=== PATIENT | male | born 1950 | race Caucasian/White ===

== ENCOUNTER 2020-11-02 07:28 | Day surgery (SDC) | payer BC, SELFPAY ==
[~2020-11-02] VITALS: Ht 175.3 cm; Wt 67.1 kg
[2020-11-02] MEDS ORDERED: CEFAZOLIN SOD 2 GM in D5W 50 ML IV ONE (09:00)
[2020-11-02 09:35] LABS: PROTHROMBIN TIME 10.4 SECS (9.5-12.5)
[2020-11-02] MEDS ORDERED: BUPIVACAINE LIPOSOME/PF 266 MG/20 ML VIAL INFIL ONE (09:37)
[2020-11-02] MEDS ORDERED: POLYMYXIN 500,000/BACIT.10,000 UNITS in NS IRR 1 L IR ONE (09:37)
[2020-11-02] MEDS ORDERED: SEVOFLURANE 15 MIN GAS INH ONE (09:50)
[2020-11-02] MEDS ORDERED: LIDOCAINE 1% 10 MG/ML, 20 ML MDV INJ ONE (09:50)
[2020-11-02] MEDS ORDERED: BUPIVACAINE /PF 0.5% 30 ML VIAL INJ ONE (09:50)
[2020-11-02] MEDS ORDERED: ePHEDrine sulfate 50 MG/ML VIAL IVP ONE (09:50)
[2020-11-02] MEDS ORDERED: METOCLOPRAMIDE HCL 10 MG/2 ML VIAL IVP ONE (09:50)
[2020-11-02] MEDS ORDERED: ROCURONIUM BROMIDE 10 MG/ML (ZEMURON) IV ONE (09:50)
[2020-11-02] MEDS ORDERED: GLYCOPYRROLATE 0.2 MG/ML VIAL IJ ONE (09:50)
[2020-11-02] MEDS ORDERED: ONDANSETRON HCL 4 MG/2 ML VIAL IVP ONE (09:50)
[2020-11-02] MEDS ORDERED: fentaNYL CITRATE/PF 100 MCG/2 ML AMP IVP ONE (09:50)
[2020-11-02] MEDS ORDERED: ETOMIDATE 20 MG/ 10 ML VIAL (AMIDATE) IVP ONE (09:50)
[2020-11-02] MEDS ORDERED: NS 1000 ML IV.SOLN IV ONE (09:50)
[2020-11-02] MEDS ORDERED: HYDROmorphone 1 INJ. 1 MG/ML CARTRIDGE IVP PRN ×2 (11:30)
[2020-11-02] MEDS ORDERED: LR 1,000 ML IV SCH (11:30)
[2020-11-02] MEDS ORDERED: HYDROmorphone 2 MG/ML VIAL IVP PRN (11:30)
[2020-11-02] MEDS ORDERED: traMADol HCL HCL 50 MG TABLET (ULTRAM) PO PRN (11:30)
[2020-11-02] MEDS ORDERED: ONDANSETRON HCL 4 MG/2 ML VIAL IVP PRN (11:30)
[2020-11-02 16:29] VITALS: BP_SYST 151
== END 2020-11-02 16:10 | disposition home or self-care (01) ==
LOC: SMU 07:28 → SDS 07:28 → EDSTATUS 09:00 → EDSEX 09:00 → SDS 16:10
PROVIDERS: ATTEND Surgery
DX: K40.90 Unilateral inguinal hernia, without obstruction or gangrene, not specified as recurrent (principal); I10 Essential (primary) hypertension; I48.91 Unspecified atrial fibrillation; E78.00 Pure hypercholesterolemia, unspecified; J43.9 Emphysema, unspecified; Z20.828 Contact with and (suspected) exposure to other viral communicable diseases
CPT/HCPCS: 36415; 49505; 85610; 88302; C1781; C9290; J0690; J2001; J2405; J2765; J3010; J3490 ×3; J7030; J7060; J7120; U0003